=== PATIENT | female | born 1970 | race Caucasian/White ===

== ENCOUNTER 2021-09-29 21:08 | Emergency (ER) | payer OTHER ==
[~2021-09-29 21:08] MED LIST: FLEXERIL5 MG PO; LACTULOSE10 G/15 ML PO; LINZESS290 MCG PO; MELOXICAM15 MG PO; MOVANTIK25 MG PO; OXYCODON-ACETA1 EAC1 PO; OXYCODONE-ACET1 EACH PO; PERCOCET 7.5/321 TAB PO
[2021-09-29 23:05] LABS: BILIRUBIN NEGATIVE (NEGATIVE); BLOOD 1+ Ery/uL (NEGATIVE); CLARITY CLEAR (CLEAR); COLOR YELLOW (YELLOW); GLUCOSE (U) NORMAL (NORMAL); LEUKOCYTES 3+ Leu/uL (NEGATIVE); NITRITE POSITIVE (NEGATIVE); PROTEIN TRACE (LOW) mg/dL (NEGATIVE); SPECIFIC GRAVITY 1.015 (1.001-1.030); UROBILINOGEN 0.2 mg/dL (0.2-1.0)
[2021-09-29 23:13] LABS: BACTERIA 3+; URINARY WBC TNTC
[2021-09-30 00:09] LABS: HCT 36.5 % (37.0-47.0); HGB 12.4 g/dl (12.5-16.0); MCH 30.4 pg (25.0-31.0); MCV 89.5 fL (78.0-100.0); MPV 9.7 fL (6.0-9.5); RBC 4.08 M/uL (4.20-5.40); RDW 12.9 % (11.5-14.0); WBC 16.6 K/uL (4.0-10.5)
[2021-09-30 00:25] LABS: BUN/CREAT RATIO (CALC) 16.5 RATIO; CREATININE 0.85 mg/dL (0.51-0.95); POTASSIUM 3.9 mmol/L (3.5-5.1)
[2021-09-30] MEDS ORDERED: MACROBID100 MG PO (00:46)
== END 2021-09-30 01:10 | disposition home or self-care (01) ==
LOC: FER 21:08
PROVIDERS: Emergency Medicine
DX: N39.0 Urinary tract infection, site not specified (principal); Z88.1 Allergy status to other antibiotic agents; Z88.2 Allergy status to sulfonamides
CPT/HCPCS: 36415; 80048; 81001; J1885